=== PATIENT | male | born 1990 | race Caucasian/White ===

== ENCOUNTER 2021-09-10 18:14 | Emergency (ER) | payer BC ==
[~2021-09-10] VITALS: Ht 180.3 cm; Wt 79.4 kg
--- NOTE | 2021-09-11 20:17 | EKG ---
[facility] [address] [facility] [address] [facility] [place], [place] [address] Signed Normal sinus rhythm with sinus arrhythmia Normal ECG No previous ECGs available Confirmed by PETE FALLON DO ([id number]) on 09/11/2021 8:17:01 PM Electronically Signed By: PETE FALLON DO 09/11/21 2017 PATIENT NAME: CARMINE MASSEY Electrocardiogram DATE OF : 88 PHYSICIAN: PETE FALLON DO REPORT #: [id number] REPORT IS CONFIDENTIAL AND NOT TO BE RELEASED WITHOUT AUTHORIZATION
== END 2021-09-10 20:43 | disposition home or self-care (01) ==
LOC: ED 18:14
DX: R07.89 Other chest pain (principal)
CPT/HCPCS: 71046; 80053; 83735; 84484; 85025; 93005; 93010; 99285-25